=== PATIENT | female | born 1940 | race African-American/Black ===

== ENCOUNTER 2017-01-22 07:15 | Observation (INO) | payer OTHER ==
[~2017-01-22] VITALS: Ht 165.1 cm; Wt 59.9 kg
[2017-01-22 08:10] LABS: BASOPHILS % 0.5 % (0.0-2.0); HEMATOCRIT. 28.1 % (36.0-48.0); MEAN CORPUSCULAR HEMOGLOBIN 29.2 pg (28.0-32.0); MEAN CORPUSCULAR HGB CONC 32.2 g/dL (31.0-37.0); MEAN CORPUSCULAR VOLUME 90.6 fL (81.0-99.0); MEAN PLATELET VOLUME 8.6 fl (7.4-10.4); MONOCYTES % 8.7 % (2.0-8.0); NEUTROPHILS % 72.8 % (40.0-76.0); PLATELET 244 x1000/uL (130-400); RED CELL DISTRIBUTION WIDTH 15.3 % (11.6-14.6); WHITE BLOOD COUNT 5.8 x1000/uL (4.5-11.0)
[2017-01-22 08:19] LABS: INR 1.1; PARTIAL THROMBOPLASTIN TIME 30.3 sec (24.0-34.0); PROTHROMBIN TIME 11.1 sec
[2017-01-22 08:21] LABS: ALBUMIN 3.3 g/dL (3.4-5.0); ANION GAP 12; CARBON DIOXIDE 27 mEq/L (21-32); CHLORIDE 102 mEq/L (98-107); INDEX HEMOLYSI 1 (1-3); INDEX ICTERIC 1 (1-4); INDEX LIPEMIC 1 (1-3); LIPASE 275 IU/L (73-393); UREA NITROGEN BLOOD 21 mg/dL (7-21)
[2017-01-22 08:27] LABS: ALANINE AMINOTRANSFERASE 13 IU/L (13-61); NT PRO B-TYPE NATRIURETIC PEP 277 pg/mL (5-125); TROPONIN I < 0.02 ng/mL (0.00-0.04); eGFR 45 mL/min (>60)
[2017-01-22] MEDS ORDERED: IPRATROPIUM/ALBUTEROL 0.5-3(2.5)MG/3ML NEB INH PRN (14:45)
[2017-01-22] MEDS ORDERED: ONDANSETRON HCL 4MG/2ML VIAL IV PRN (14:45)
[2017-01-22] MEDS ORDERED: HYDROCODONE/ACETAMINOPHEN 5/325MG TABLET PO PRN (14:45)
[2017-01-22] MEDS ORDERED: CLONIDINE 0.1MG TABLET PO PRN (14:45)
[2017-01-22] MEDS ORDERED: ACETAMINOPHEN 325MG TABLET PO PRN (14:45)
[2017-01-22] MEDS: ENOXAPARIN 40MG/0.4ML SYR SUBCUT SCH (17:53)
[2017-01-22 22:00] VITALS: BP 133/71
[2017-01-22 22:05] VITALS: BP 133/71
[2017-01-22 23:23] LABS: CREATINE KINASE 62 IU/L (26-192); INDEX HEMOLYSI 1 (1-3); TROPONIN I < 0.02 ng/mL (0.00-0.04)
[2017-01-23] VITALS (7 sets, daily range): BP systolic 123–142; BP diastolic 68–83
[2017-01-23 06:50] LABS: BASOPHILS % 1.3 % (0.0-2.0); EOSINOPHILS % 2.5 % (0.0-5.0); HEMATOCRIT. 29.1 % (36.0-48.0); HEMOGLOBIN. 9.4 g/dL (12.0-16.0); LYMPHOCYTES % 23.2 % (20.0-50.0); MEAN CORPUSCULAR HGB CONC 32.3 g/dL (31.0-37.0); MEAN CORPUSCULAR VOLUME 89.8 fL (81.0-99.0); MEAN PLATELET VOLUME 8.6 fl (7.4-10.4); MONOCYTES % 12.1 % (2.0-8.0); NEUTROPHILS % 60.9 % (40.0-76.0); PLATELET 252 x1000/uL (130-400); RED BLOOD CELL COUNT 3.24 mill/uL (4.2-5.4); RED CELL DISTRIBUTION WIDTH 15.4 % (11.6-14.6); WHITE BLOOD COUNT 5.6 x1000/uL (4.5-11.0)
[2017-01-23 07:14] LABS: CHLORIDE 102 mEq/L (98-107); INDEX HEMOLYSI 1 (1-3); INDEX ICTERIC 1 (1-4); INDEX LIPEMIC 1 (1-3)
[2017-01-23 07:44] LABS: ALANINE AMINOTRANSFERASE 15 IU/L (13-61); ALBUMIN 3.2 g/dL (3.4-5.0); ANION GAP 14; CALCIUM 10.2 mg/dL (8.5-10.1); CARBON DIOXIDE 26 mEq/L (21-32); CREATINE KINASE 61 IU/L (26-192); HDL CHOLESTEROL 55 mg/dL (40-59); LDL CHOLESTEROL 80 mg/dL (5-100); T4 FREE 1.23 ng/dL (0.76-1.46); TRIGLYCERIDE 83 mg/dL (0-150); TROPONIN I < 0.02 ng/mL (0.00-0.04); UREA NITROGEN BLOOD 16 mg/dL (7-21); eGFR 53 mL/min (>60)
[2017-01-23] MEDS: ENOXAPARIN 40MG/0.4ML SYR SUBCUT SCH (17:15)
[2017-01-23] MEDS ORDERED: SULFAMETHOXAZOLE/TRIMETHOPRIM 800/160MG TABLET PO SCH (21:00)
== END 2017-01-23 20:40 | disposition home or self-care (01) ==
LOC: ER 07:38 → 6WST 08:10 → INTOOBSV 08:10
PROVIDERS: ADMIT Internal Medicine; ATTEND Internal Medicine
DX: E11.649 Type 2 diabetes mellitus with hypoglycemia without coma (principal); I10 Essential (primary) hypertension; E78.00 Pure hypercholesterolemia, unspecified; Z95.0 Presence of cardiac pacemaker
CPT/HCPCS: 36415; 70450; 71010; 80053; 80061; 82550; 82962; 83690; 83880; 84439; 84443; 84484; 85025; 85610; 85730; 93005; 96372; 99285; G0378; J1650

== ENCOUNTER 2020-07-15 15:32 | Emergency (ER) | payer OTHER ==
[~2020-07-15] VITALS: Ht 165.1 cm; Wt 60.0 kg
[2020-07-15] MEDS ORDERED: SODIUM CHLORIDE 0.9% 500 ML IV ONE (16:30)
[2020-07-15 16:53] LABS: BASOPHILS % 0.6 % (0.0-2.0); EOSINOPHILS % 0.7 % (0.0-5.0); HEMATOCRIT. 36.3 % (36.0-48.0); HEMOGLOBIN. 12.1 g/dL (12.0-16.0); LYMPHOCYTES % 17.9 % (20.0-50.0); MEAN PLATELET VOLUME 10.6 fl (7.4-10.4); MONOCYTES % 7.1 % (2.0-8.0); NEUTROPHILS % 73.7 % (40.0-76.0); PLATELET 172 x1000/uL (130-400); RED BLOOD CELL COUNT 3.91 mill/uL (4.2-5.4); RED CELL DISTRIBUTION WIDTH 15.1 % (11.6-14.6)
[2020-07-15 16:59] LABS: CHLORIDE 108 mEq/L (98-107)
[2020-07-15 20:30] VITALS: BP 152/72
== END 2020-07-15 20:56 | disposition home or self-care (01) ==
LOC: ER 15:32
DX: R55 Syncope and collapse (principal); E11.9 Type 2 diabetes mellitus without complications; E78.00 Pure hypercholesterolemia, unspecified; I11.9 Hypertensive heart disease without heart failure; Z95.0 Presence of cardiac pacemaker
CPT/HCPCS: 36415; 71045; 80053; 83880; 84484; 85025; 93005; 96360; 99285; J7040